=== PATIENT | male | born 1960 | race Caucasian/White ===

== ENCOUNTER 2017-03-24 02:52 | Inpatient (IN) ==
[2017-03-24] MEDS ORDERED: ONDANSETRON 4 MG/2 ML VIAL IV PRN (04:53)
[2017-03-24] MEDS ORDERED: MORPHINE 2 MG/1 ML SYRINGE IV PRN (04:56)
[2017-03-24] MEDS ORDERED: LORazepam 2 MG/1 ML VIAL IV PRN (05:07)
[2017-03-24] MEDS ORDERED: ALBUTEROL/IPRATROPIUM 3 ML NEB RESP TX PRN (05:10)
[2017-03-24] MEDS: SODIUM CHLORIDE 0.9% 1,000 ML IV SCH ×2 (05:28→15:19)
[2017-03-24] MEDS ORDERED: PIPERACILLIN/TAZOBACTAM 3,375 MG in SODIUM CHLORIDE 0.9% 100 ML IV SCH (05:30)
[2017-03-24] MEDS: INSULIN LISPRO 100 UNIT/ML SUBCUT SCH ×3 (06:42→19:08)
[2017-03-24 07:12] LABS: Albumin 1.9 G/DL (3.4-5.0); Bilirubin,Total 0.7 MG/DL (0.2-1.0); Calcium 8.2 MG/DL (8.5-10.1); Potassium 4.2 MMOL/L (3.5-5.1); Total Protein 5.8 G/DL (6.4-8.3)
[2017-03-24 07:27] LABS: Basophils # 0.1 10*3/uL (0.0-0.2); Basophils % 0.2 % (0.0-0.8); Hematocrit 34.9 VOL% (42.0-52.0); Hemoglobin 11.6 GM/DL (14.0-18.0); Immature Granulocytes % 1.7 %; Immature Granulocytes Absolute 0.43 #; Lymphocytes # 0.5 10*3/uL (1.4-4.0); Lymphocytes % 2.1 % (21.2-54.2); Mean Corpuscular HGB Conc 33.2 GM/DL (32-36); Mean Corpuscular Hemoglobin 31 PG (27-34); Mean Corpuscular Volume 92.3 FL (87-102); Mean Platelet Volume 10.9 FL (9.6-12.0); Monocytes # 0.7 10*3/uL (0.11-0.8); Monocytes % 2.6 % (1.7-12.7); Neutrophils # 23.7 10*3/uL (1.4-7.4); Neutrophils % 93.4 % (38.7-73.9); Platelet Count 318 T/CUMM (130-400); Red Blood Count 3.78 MC/CUMM (3.8-5.5); Red Cell Distribution Width 14.4 % (9.3-17.3); White Blood Count 25.4 T/CUMM (4-12)
[2017-03-24 07:49] LABS: Band Neutrophils 4 % (0-10); Lymphocytes 1 % (20-55); Microcytosis Slight; Segmented Neutrophils 91 % (50-85); Total Cells Counted 100
[2017-03-24] MEDS: MEROPENEM 500 MG in SYRINGE 1 EACH IV SCH ×2 (09:16→20:08)
[2017-03-24] MEDS: VANCOMYCIN INJ 1,000 MG in SODIUM CHLORIDE 0.9% 250 ML IV SCH (11:17)
[2017-03-24 11:36] LABS: INR 1.1; PT Patient Result 11.2 SECS
[2017-03-24] MEDS ORDERED: MIDAZOLAM 2 MG/2 ML VIAL ONE (15:38)
[2017-03-24] MEDS ORDERED: fentaNYL 100 MCG/2 ML VIAL ONE (15:38)
[2017-03-24] MEDS ORDERED: MIDAZOLAM 2 MG/2 ML VIAL IV ONE (15:39)
[2017-03-24] MEDS ORDERED: fentaNYL 100 MCG/2 ML VIAL IV ONE (15:39)
[2017-03-24] MEDS: SODIUM CHLORIDE 0.45% 1,000 ML IV SCH (16:30)
[2017-03-25] MEDS: INSULIN LISPRO 100 UNIT/ML SUBCUT SCH ×4 (00:04→18:24)
[2017-03-25] MEDS: SODIUM CHLORIDE 0.9% 1,000 ML IV SCH ×3 (00:55→20:27)
[2017-03-25 06:50] LABS: Basophils # 0.1 10*3/uL (0.0-0.2); Basophils % 0.2 % (0.0-0.8); Hematocrit 33.7 VOL% (42.0-52.0); Hemoglobin 11.5 GM/DL (14.0-18.0); Immature Granulocytes % 1.9 %; Immature Granulocytes Absolute 0.43 #; Lymphocytes # 0.8 10*3/uL (1.4-4.0); Lymphocytes % 3.6 % (21.2-54.2); Mean Corpuscular HGB Conc 34.1 GM/DL (32-36); Mean Corpuscular Hemoglobin 31 PG (27-34); Mean Corpuscular Volume 90.1 FL (87-102); Monocytes # 1.1 10*3/uL (0.11-0.8); Neutrophils % 89.3 % (38.7-73.9); Platelet Count 278 T/CUMM (130-400); Red Blood Count 3.74 MC/CUMM (3.8-5.5); Red Cell Distribution Width 14.6 % (9.3-17.3); White Blood Count 22.4 T/CUMM (4-12)
[2017-03-25 07:23] LABS: Calcium 7.6 MG/DL (8.5-10.1); Osmolality,Calculated 289.5 MOS/KG (273-304); Potassium 4.1 MMOL/L (3.5-5.1)
[2017-03-25 08:35] LABS: Band Neutrophils 6 % (0-10); Hypochromasia 2+; Lymphocytes 2 % (20-55); Microcytosis 2+; Platelet Estimate Adequate; Segmented Neutrophils 89 % (50-85); Total Cells Counted 100
[2017-03-25] MEDS: MEROPENEM 500 MG in SYRINGE 1 EACH IV SCH ×2 (09:01→20:28)
[2017-03-25] MEDS ORDERED: GLUCAGON 1 MG VIAL IM PRN (13:35)
[2017-03-25] MEDS ORDERED: DEXTROSE 50% 25 GM/50 ML VIAL IV PRN (13:35)
[2017-03-25] MEDS: SODIUM CHLORIDE 0.45% 1,000 ML IV SCH (17:23)
[2017-03-26] MEDS: INSULIN LISPRO 100 UNIT/ML SUBCUT SCH ×4 (00:54→18:25)
[2017-03-26] MEDS: SODIUM CHLORIDE 0.9% 1,000 ML IV SCH ×3 (03:25→14:22)
[2017-03-26 05:08] LABS: Basophils % 0.1 % (0.0-0.8); Eosinophils # 0.1 10*3/uL (0.0-0.87); Eosinophils % 0.4 % (0.00-10.9); Hematocrit 33.6 VOL% (42.0-52.0); Hemoglobin 11.4 GM/DL (14.0-18.0); Immature Granulocytes % 1.8 %; Immature Granulocytes Absolute 0.29 #; Lymphocytes # 1.4 10*3/uL (1.4-4.0); Lymphocytes % 8.2 % (21.2-54.2); Mean Corpuscular HGB Conc 33.9 GM/DL (32-36); Mean Corpuscular Hemoglobin 31 PG (27-34); Mean Corpuscular Volume 90.1 FL (87-102); Mean Platelet Volume 11.2 FL (9.6-12.0); Monocytes # 1.2 10*3/uL (0.11-0.8); Neutrophils # 13.7 10*3/uL (1.4-7.4); Neutrophils % 82.5 % (38.7-73.9); Platelet Count 274 T/CUMM (130-400); Red Blood Count 3.73 MC/CUMM (3.8-5.5); Red Cell Distribution Width 14.6 % (9.3-17.3); White Blood Count 16.5 T/CUMM (4-12)
[2017-03-26 05:36] LABS: Calcium 7.5 MG/DL (8.5-10.1); Osmolality,Calculated 287.3 MOS/KG (273-304); Potassium 3.8 MMOL/L (3.5-5.1)
[2017-03-26] MEDS: VANCOMYCIN INJ 1,000 MG in SODIUM CHLORIDE 0.9% 250 ML IV SCH (11:01)
[2017-03-26] MEDS: MEROPENEM 500 MG in SYRINGE 1 EACH IV SCH ×2 (11:01→15:31)
[2017-03-26] MEDS: PROPRANOLOL LA 80 MG CAPSULE PO SCH (15:27)
[2017-03-26] MEDS: amLODIPine 2.5 MG TABLET PO SCH (15:27)
[2017-03-26] MEDS: SODIUM CHLORIDE 0.45% 1,000 ML IV SCH (16:52)
[2017-03-27] MEDS: MEROPENEM 500 MG in SYRINGE 1 EACH IV SCH ×3 (00:17→16:50)
[2017-03-27] MEDS: INSULIN LISPRO 100 UNIT/ML SUBCUT SCH ×3 (00:20→15:07)
[2017-03-27] MEDS: SODIUM CHLORIDE 0.9% 1,000 ML IV SCH ×3 (00:23→15:07)
[2017-03-27] MEDS: DESITIN 4OZ/NYSTATIN 15 GRAM MIXTURE PASTE TOP SCH ×3 (05:37→21:45)
[2017-03-27 06:06] LABS: Basophils % 0.3 % (0.0-0.8); Eosinophils # 0.2 10*3/uL (0.0-0.87); Eosinophils % 1.2 % (0.00-10.9); Hematocrit 32.1 VOL% (42.0-52.0); Immature Granulocytes Absolute 0.27 #; Lymphocytes # 1.4 10*3/uL (1.4-4.0); Lymphocytes % 10.3 % (21.2-54.2); Mean Corpuscular HGB Conc 34.3 GM/DL (32-36); Mean Corpuscular Hemoglobin 31 PG (27-34); Mean Corpuscular Volume 90.2 FL (87-102); Mean Platelet Volume 10.9 FL (9.6-12.0); Monocytes % 7.9 % (1.7-12.7); Neutrophils # 10.3 10*3/uL (1.4-7.4); Neutrophils % 78.3 % (38.7-73.9); Platelet Count 284 T/CUMM (130-400); Red Blood Count 3.56 MC/CUMM (3.8-5.5); White Blood Count 13.2 T/CUMM (4-12)
[2017-03-27 06:36] LABS: Calcium 7.9 MG/DL (8.5-10.1); Magnesium 1.5 MG/DL (1.8-2.4); Osmolality,Calculated 277.7 MOS/KG (273-304); Potassium 3.4 MMOL/L (3.5-5.1)
[2017-03-27] MEDS: PROPRANOLOL LA 80 MG CAPSULE PO SCH (08:51)
[2017-03-27] MEDS: amLODIPine 2.5 MG TABLET PO SCH (08:52)
[2017-03-27] MEDS ORDERED: VANCOMYCIN INJ 1,000 MG in SODIUM CHLORIDE 0.9% 250 ML IV SCH (12:00)
[2017-03-27] MEDS: MAGNESIUM CHLORIDE 64 MG TABLET PO SCH (21:45)
[2017-03-28] MEDS: MEROPENEM 500 MG in SYRINGE 1 EACH IV SCH ×2 (00:05→09:19)
[2017-03-28 05:57] LABS: Basophils # 0.1 10*3/uL (0.0-0.2); Basophils % 0.4 % (0.0-0.8); Eosinophils # 0.2 10*3/uL (0.0-0.87); Eosinophils % 1.4 % (0.00-10.9); Hematocrit 32.4 VOL% (42.0-52.0); Hemoglobin 11.2 GM/DL (14.0-18.0); Immature Granulocytes Absolute 0.44 #; Lymphocytes # 1.4 10*3/uL (1.4-4.0); Lymphocytes % 9.7 % (21.2-54.2); Mean Corpuscular HGB Conc 34.6 GM/DL (32-36); Mean Corpuscular Hemoglobin 31 PG (27-34); Mean Corpuscular Volume 90.5 FL (87-102); Mean Platelet Volume 11.2 FL (9.6-12.0); Monocytes # 1.2 10*3/uL (0.11-0.8); Monocytes % 7.7 % (1.7-12.7); Neutrophils # 11.6 10*3/uL (1.4-7.4); Neutrophils % 77.8 % (38.7-73.9); Platelet Count 308 T/CUMM (130-400); Red Blood Count 3.58 MC/CUMM (3.8-5.5); Red Cell Distribution Width 13.6 % (9.3-17.3); White Blood Count 14.9 T/CUMM (4-12)
[2017-03-28 06:24] LABS: Calcium 7.9 MG/DL (8.5-10.1); Osmolality,Calculated 276.7 MOS/KG (273-304); Potassium 3.9 MMOL/L (3.5-5.1)
[2017-03-28] MEDS: DESITIN 4OZ/NYSTATIN 15 GRAM MIXTURE PASTE TOP SCH ×2 (09:18→21:10)
[2017-03-28] MEDS: MAGNESIUM CHLORIDE 64 MG TABLET PO SCH ×2 (09:18→21:04)
[2017-03-28] MEDS: amLODIPine 2.5 MG TABLET PO SCH (09:18)
[2017-03-28] MEDS: PROPRANOLOL LA 80 MG CAPSULE PO SCH (09:18)
[2017-03-28] MEDS: ERTAPENEM 1,000 MG in SODIUM CHLORIDE 0.9% 100 ML IV SCH (14:58)
[2017-03-28] MEDS ORDERED: ZINC OXIDE PASTE 113 GM TUBE TOP PRN (16:02)
[2017-03-29] MEDS: PROPRANOLOL LA 80 MG CAPSULE PO SCH (08:40)
[2017-03-29] MEDS: amLODIPine 2.5 MG TABLET PO SCH (08:40)
[2017-03-29] MEDS: MAGNESIUM CHLORIDE 64 MG TABLET PO SCH (08:40)
[2017-03-29] MEDS: DESITIN 4OZ/NYSTATIN 15 GRAM MIXTURE PASTE TOP SCH (08:40)
[2017-03-29] MEDS: ERTAPENEM 1,000 MG in SODIUM CHLORIDE 0.9% 100 ML IV SCH (13:07)
[2017-03-29 13:21] VITALS: BP 149/75
== END 2017-03-29 16:13 | DRG 690 ==
LOC: N.CARD 02:52 → N.5E 02:55 → SUATTDRO 04:53 → N.5E 08:40
PROVIDERS: ADMIT Internal Medicine Cardiovascular Disease; ATTEND Internal Medicine